=== PATIENT | male | born 1990 | race Caucasian/White ===

== ENCOUNTER 2024-09-29 21:11 | Emergency (ER) | payer OTHER ==
[~2024-09-29] VITALS: Ht 167.6 cm; Wt 73.0 kg
[2024-09-29 21:27] VITALS: BP 125/98; PULSE 101; RESP 18; TEMP 98.8; O2SAT 97
[2024-09-29] MEDS ORDERED: ONDANSETRON 4MG ODT PO ONE (23:15)
[2024-09-29] MEDS ORDERED: MAGNESIUM/ALUMINUM HYDROXIDE/SIMETHICONE 30ML UDC PO ONE (23:15)
== END 2024-09-29 23:53 | disposition left against medical advice (07) ==
LOC: ER 21:11
DX: F10.129 Alcohol abuse with intoxication, unspecified (principal); R11.2 Nausea with vomiting, unspecified; E78.00 Pure hypercholesterolemia, unspecified; Z88.8 Allergy status to other drugs, medicaments and biological substances; Y90.9 Presence of alcohol in blood, level not specified
CPT/HCPCS: 99283